=== PATIENT | male | born 1950 | race Caucasian/White ===

== ENCOUNTER 2017-02-20 00:23 | Emergency (ER) | payer OTHER ==
[2017-02-20] MEDS ORDERED: SODIUM CHLORIDE 0.9% 1,000 ML IV STA (00:57)
[2017-02-20] MEDS ORDERED: RX INFO: IV CONTRAST WAS GIVEN 1 EACH MISC MISCELLANE PRN (00:57)
[2017-02-20] MEDS ORDERED: DIPH,PERTUS(ACELL)TETVAC-LF 0.5 ML VIAL IM ONE (00:57)
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
[2017-02-20 01:57] LABS: Basophils # (A) 0.1 k/uL (0-0.2); Basophils % (A) 0 %; CH 32.7; Eosinophils # (A) 0.2 k/uL (0-0.7); Eosinophils % (A) 1 %; HDW 2.17; Luc # (Auto) 0.11; Luc % (Auto) 1; Lymphocytes # (A) 0.8 k/uL (1.0-4.8); Lymphocytes % (A) 5 %; MCHC 34.1 g/dL (31.0-37.0); Monocytes # (A) 0.9 k/uL (0-1.0); Monocytes % (A) 6 %; Neutrophils # (A) 12.7 k/uL (1.3-7.7); Neutrophils % (A) 86 %; RDW 13.9 % (11.5-15.5); WBC 14.7 k/uL (3.8-10.6); WBC (Perox) 14.14
[2017-02-20 02:06] LABS: Alkaline Phosphatase 109 U/L (38-126); Anion Gap 13 mmol/L; Calcium 9.6 mg/dL (8.4-10.2); Carbon Dioxide 23 mmol/L (22-30); Chloride 96 mmol/L (98-107); Glucose 107 mg/dL (74-99); Non-African American GFR(MDRD) >60 (>60 ml/min/1.73 sqM); Potassium 4.5 mmol/L (3.5-5.1); Sodium 132 mmol/L (137-145); Total Bilirubin 0.7 mg/dL (0.2-1.3); Total Protein 7.6 g/dL (6.3-8.2)
[2017-02-20 02:09] LABS: Partial Thromboplastin Time 23.9 sec (22.0-30.0)
[2017-02-20 02:13] LABS: Alcohol 113 mg/dL
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
[2017-02-20 03:27] VITALS: BP 157/78; PULSE 99; RESP 18; TEMP 98.8
[2017-02-23 07:35] LABS: ALT 214 U/L (21-72); AST 147 U/L (17-59); Blood Urea Nitrogen 7 mg/dL (9-20)
[2017-02-23 07:36] LABS: HCT 45.9 % (39.0-53.0); HGB 15.7 gm/dL (13.0-17.5); RBC 4.89 m/uL (4.30-5.90)
== END 2017-02-20 03:27 | disposition home or self-care (01) ==
LOC: EDSEX → EC 00:23 → MERGE 00:23 → EC 03:27
DX: S20.211A Contusion of right front wall of thorax, initial encounter (principal); R10.811 Right upper quadrant abdominal tenderness; I10 Essential (primary) hypertension; Z79.899 Other long term (current) drug therapy; V43.52XA Car driver injured in collision with other type car in traffic accident, initial encounter; Y92.410 Unspecified street and highway as the place of occurrence of the external cause
CPT/HCPCS: 36415; 80053; 85025; 85610; 85730; 80320; 72125; 70450; 71260; 74177; 90715; 99284; 90471; 96360; 96361; Q9967

== ENCOUNTER → 2018-10-06 | Outpatient (CLI) | payer OTHER ==
--- NOTE | 2018-10-06 15:43 | US ---
EXAMINATION TYPE: US carotid duplex BILAT DATE OF EXAM: 10/06/2018 COMPARISON: NONE CLINICAL HISTORY: I65.22 Occlusion and stenosis of left carotid. Bruit. Occlusion/stenosis left carot id artery per order. EXAM MEASUREMENTS: RIGHT: Peak Systolic Velocity (PSV) cm/sec ----- Right CCA: 104.0 ----- Right ICA: 81.2 ----- Right ECA: 118.5 ICA/CCA ratio: 0.8 RIGHT: End Diastole cm/sec ----- Right CCA: 22.7 ----- Right ICA: 26.3 ----- Right ECA: 17.6 LEFT: Peak Systolic Velocity (PSV) cm/sec ----- Left CCA: 94.1 ----- Left ICA: 79.8 ----- Left ECA: 128.6 ICA/CCA ratio: 0.8 LEFT: End Diastole cm/sec ----- Left CCA: 20.4 ----- Left ICA: 31.4 ----- Left ECA: 22.0 VERTEBRALS (direction of flow): Right Vertebral: Antegrade Left Vertebral: Antegrade Rhythm: Normal Wall changes seen bilateral CCAs. Calcified shadowing plaque seen bilateral carotid bulbs. More jyoti que visualized left bulb. Minimally elevated velocity obtained left ECA. IMPRESSION: 1. Atherosclerotic plaque with no significant hemodynamic stenosis bilaterally. Criteria for Assigning % of Stenosis / Diameter reduction (Estimation based on the indirect measurements of the internal carotid artery velocities (ICA PSV). 1. Normal (no stenosis)=ICA PSV < 125 cm/s: ratio < 2.0: ICA EDV<40 cm/s. 2. Less than 50% stenosis=ICA PSV < 125 cm/s: ratio < 2.0: ICA EDV<40 cm/s. 3. 50 to 69% stenosis=ICA PSV of 125 to 230 cm/s: ration 2.0 ? 4.0: ICA EDV 40-100 cm/s. 4. Greater than 70% stenosis to near occlusion= ICA PSV > 230 cm/s: ratio > 4.0: ICA EDV > 100 cm/s. 5. Near occlusion= ICA PSV velocities may be low or undetectable: variable ratio and ICA EDV. 6. Total occlusion=unable to detect flow.
== END ==
LOC: RADUSWWP 14:31
PROVIDERS: ATTEND Physician Assistant Medical
DX: I65.23 Occlusion and stenosis of bilateral carotid arteries (principal)
CPT/HCPCS: 93880